=== PATIENT | female | born 1985 | race Caucasian/White ===

== ENCOUNTER 2024-05-04 14:30 | Emergency (ER) | payer OTHER ==
[~2024-05-04] VITALS: Ht 162.6 cm; Wt 124.7 kg
[2024-05-04 15:03] VITALS: BP 193/110; PULSE 89; RESP 18; TEMP 98.2; O2SAT 96
[2024-05-04] MEDS ORDERED: ZOFRAN ONE (15:16)
[2024-05-04] MEDS ORDERED: DILAUDID ONE (15:16)
[2024-05-04] MEDS ORDERED: NS 1000ML 1,000 ML ONE (15:16)
[2024-05-04 15:22] LABS: BASOPHIL # 0.1 10^3/uL (0.0-0.1); BASOPHIL % 0.7 % (0.1-1.2); EOSINOPHIL # 0.2 10^3/uL (0.0-0.2); EOSINOPHIL % 1.5 % (0.0-5.0); HEMATOCRIT(ML) 43.2 % (36.0-46.0); HEMOGLOBIN 13.8 g/dL (12.0-15.0); LYMPHOCYTES # 3.04 10^3/uL1 (1.0-4.8); LYMPHOCYTES % 22.4 % (24.0-44.0); MEAN CORP HGB CONCENTRATION 31.9 g/dL (33-36.5); MEAN CORP VOLUME 90.8 fL (78-100); MONOCYTES # 0.8 10^3/uL (0.3-0.8); NEUTROPHIL # 9.4 10^3/uL (1.8-7.7); NEUTROPHILS % 69.2 % (41.0-85.0); PLATELET COUNT 353 10^3/uL (150-400); RED BLOOD CELL 4.76 10^6/uL (4.00-5.20); RED CELL DISTRIBUTION WIDTH 14.8 % (11.5-14.5); WHITE BLOOD CELL 13.6 10^3/uL (4.5-11.0)
[2024-05-04] MEDS: ZOFRAN IV STA (15:27)
[2024-05-04] MEDS: DILAUDID IV STA (15:28)
[2024-05-04] MEDS: NS 1000ML 1,000 ML IV STA (15:28)
[2024-05-04 15:29] LABS: BILIRUBIN,URINE NEGATIVE (NEGATIVE); LEUKOCYTE ESTERASE ,URINE NEGATIVE (NEGATIVE); NITRATE,URINE NEGATIVE (NEGATIVE); UROBILINOGEN,URINE 0.2 E.U./dL (0.2)
[2024-05-04 15:30] LABS: +ADD MANUAL DIFF(NO CHRG) NO
[2024-05-04 15:31] LABS: APPEARANCE,URINE CLOUDY; UA COLOR YELLOW
[2024-05-04 15:36] LABS: ANION GAP 17.3; CARBON DIOXIDE 27.5 mmol/L (20.0-32); CREATININE SERUM 0.86 mg/dL (0.59-1.40); POTASSIUM 3.8 mmol/L (3.6-5.2)
[2024-05-04 15:37] LABS: BUN/CREATININE RATIO 13.95 (10.0-20.0); EST GFR, NON-AA 73.1 (>/=60)
[2024-05-04 15:53] VITALS: BP 187/91; PULSE 92; RESP 18; O2SAT 98
[2024-05-04 16:12] VITALS: BP 143/83; PULSE 88; RESP 18; O2SAT 98
[2024-05-04] MEDS ORDERED: FLOMAX PO ONE (16:13)
[2024-05-04] MEDS: FLOMAX PO STA (16:16)
== END 2024-05-04 16:26 | disposition home or self-care (01) ==
LOC: ER 14:30
DX: N13.2 Hydronephrosis with renal and ureteral calculous obstruction (principal); I10 Essential (primary) hypertension
CPT/HCPCS: 99285; 74176; 96374; 96361; 96375; 85025; 36415; 80048; 81001; 81025; J7030; J2405; J8499